=== PATIENT | male | born 1945 | race Caucasian/White ===

== ENCOUNTER 2017-10-27 03:39 | Emergency (ER) | payer BC, MEDICARE ==
[2017-10-27 03:39] VITALS: BMI 31.3
[2017-10-27 05:05] VITALS: BP 131/83; PULSE 82; RESP 16; TEMP 99; O2SAT 96
--- NOTE | 2017-10-27 05:11 | C.PDOC ---
History Of Present Illness 72 y/o male presents to the ED complaining of sudden pain and swelling to his right great toe, onset 2 hours prior to arrival. Denies any trauma or injury. Patient states he has consumed high amounts of red meat and wine during the last week. Otherwise no other complaints. Time Seen by Provider: 10/27/17 04:11 Chief Complaint (Nursing): Lower Extremity Problem/Injury History Per: Patient History/Exam Limitations: no limitations Onset/Duration Of Symptoms: Hrs Current Symptoms Are (Timing): Still Present Past Medical History Reviewed: Historical Data, Nursing Documentation, Vital Signs Vital Signs: Last Vital Signs Temp 99 F 10/27/17 05:04 Pulse 82 10/27/17 05:04 Resp 16 10/27/17 05:04 BP 131/83 10/27/17 05:04 Pulse Ox 96 10/27/17 05:13 - Medical History PMH: Gastrointestinal Ulcer, HTN Surgical History: Denies: Pacemaker - [facility] Procedures COLONOSCOPY (09/27/13) ESOPHAGOGASTRODUODENOSCOPY [EGD] W/CLOSED BIOPSY (12/05/13) INTRODUCTION OF SERUM/TOX/VACCINE INTO MUSCLE, PERC APPROACH (03/27/15) RESECTION OF APPENDIX, PERCUTANEOUS ENDOSCOPIC APPROACH (03/27/15) Family History: States: No Known Family Hx - Social History Hx Alcohol Use: No Hx Substance Use: No Review Of Systems Constitutional: Negative for: Fever, Chills Musculoskeletal: Positive for: Other (right toe pain and swelling) Neurological: Negative for: Weakness, Numbness Physical Exam - Physical Exam Appears: Non-toxic, No Acute Distress Skin: Warm, Dry Head: Atraumatic, Normacephalic Eye(s): bilateral: Normal Inspection, PERRL, EOMI Oral Mucosa: Moist Neck: Normal ROM, Trachea Midline Chest: Symmetrical Respiratory: No Accessory Muscle Use Extremity: Tenderness (and swelling to the right great toe; No warmth or cellulitic changes), Capillary Refill (< 2 sec), Other (ROM causes pain to right toe, otherwise FROM of all toes; Patient is ambulatory with mild pain) Pulses: Left Dorsalis Pedis: Normal, Right Dorsalis Pedis: Normal Neurological/Psych: Oriented x3, Normal Speech, Normal Motor, Normal Sensation ED Course And Treatment O2 Sat by Pulse Oximetry: 96 (RA) Pulse Ox Interpretation: Normal Progress Note: Patient treated with IM Toradol and PO Colchicine. On reevaluation, patient is ambulatory in the ED, reports improvement, and is stable for discharge home. Counseled regarding diagnosis and treatment plan. Advised patient to follow up with PMD for further evaluation. Reassessment Condition: Improved Disposition Counseled Patient/Family Regarding: Diagnosis, Need For Followup - Disposition Referrals: [facility] [Outside] Disposition: HOME/ ROUTINE Disposition Time: 05:07 Condition: STABLE Additional Instructions: Please elevate leg Take medications as directed Return to ER if worse Prescriptions: Colchicine 0.6 mg PO Q6 #10 tablet Naproxen [Naprosyn] 1 tab PO BID PRN #25 tab PRN Reason: Pain Instructions: Gout (DC) Forms: [employer] (Moroccan) - POA Present On Arrival: None - Clinical Impression Clinical Impression: Gout - PA / SURFACER / Resident Statement MD/DO has reviewed & agrees with the documentation as recorded. - Scribe Statement The provider has reviewed the documentation as recorded by the Scribe (Lilian Lee) All medical record entries made by the Scribe were at my direction and personally dictated by me. I have reviewed the chart and agree that the record accurately reflects my personal performance of the history, physical exam, medical decision making, and the department course for this patient. I have also personally directed, reviewed, and agree with the discharge instructions and disposition.
== END 2017-10-27 05:18 | disposition home or self-care (01) ==
LOC: C.ER 03:39
DX: M10.9 Gout, unspecified (principal); I10 Essential (primary) hypertension
CPT/HCPCS: 96372; 99284; J1885

== ENCOUNTER 2018-06-27 13:36 | Emergency (ER) | payer MEDICARE ==
[2018-06-27 13:37] VITALS: BMI 31.3
[2018-06-27 14:06] VITALS: BP 139/86; PULSE 94; RESP 18; TEMP 98.1; O2SAT 98
[2018-06-27] MEDS ORDERED: Lidocaine 1% Inj (20ml) INFIL ONE (14:41)
[2018-06-27] MEDS ORDERED: Tmp-Smz 800 mg-160 mg DS Tab PO STA (14:42)
--- NOTE | 2018-06-27 14:44 | C.PDOC ---
History Of Present Illness 73 y/o male pt presents to the ER c/o abscess for x1 week. Abscess is located in the umbilicus. Pt reports it started as a pimple and was draining but now has become painful and swollen. Pt notes he did not take any medication for pain. Pt denies fever, chills, nausea, vomiting, weakness and numbness. Time Seen by Provider: 06/27/18 14:38 Chief Complaint (Nursing): Abnormal Skin Integrity History Per: Patient History/Exam Limitations: no limitations Onset/Duration Of Symptoms: Days (x7) Current Symptoms Are (Timing): Still Present Past Medical History Reviewed: Historical Data, Nursing Documentation, Vital Signs Vital Signs: Last Vital Signs Temp 98.1 F 06/27/18 14:03 Pulse 94 H 06/27/18 14:03 Resp 18 06/27/18 14:03 BP 139/86 06/27/18 14:03 Pulse Ox 98 06/27/18 14:03 - Medical History PMH: Gastrointestinal Ulcer, HTN - [facility] Procedures COLONOSCOPY (09/27/13) ESOPHAGOGASTRODUODENOSCOPY [EGD] W/CLOSED BIOPSY (12/05/13) INTRODUCTION OF SERUM/TOX/VACCINE INTO MUSCLE, PERC APPROACH (03/27/15) RESECTION OF APPENDIX, PERCUTANEOUS ENDOSCOPIC APPROACH (03/27/15) Family History: States: No Known Family Hx - Social History Hx Alcohol Use: No Hx Substance Use: No Review Of Systems Constitutional: Negative for: Fever, Chills Gastrointestinal: Negative for: Nausea, Vomiting Skin: Positive for: Other (abscess in umbilicus region ) Neurological: Negative for: Weakness, Numbness Physical Exam - Physical Exam Appears: Non-toxic, No Acute Distress Skin: Warm, Dry, Other (2 cm round fluctuant mass in middle of abdomen below umbilicus with overlying and surrounding warmth and erythema. ) Head: Atraumatic, Normacephalic Eye(s): bilateral: Normal Inspection Cardiovascular: Rhythm Regular Respiratory: Normal Breath Sounds Neurological/Psych: Oriented x3, Normal Speech ED Course And Treatment O2 Sat by Pulse Oximetry: 98 (RA) Pulse Ox Interpretation: Normal - Incision & Drainage Of Abscess Anesthesia: Lidocaine 1% Prep Used: Betadine Procedure: Incised W/Scalpel Blade#: (11), Drained Pus, Irrigated Cavity W/Saline, Probed To Break Up Loculations, Packed W/Gauze Medical Decision Making Medical Decision Making: pt with abdominal wall absvess, incised and drained in ed, packed, given antobiotics, to return in 2 days for packing removal and wound check Disposition Counseled Patient/Family Regarding: Diagnosis, Need For Followup, Rx Given - Disposition Disposition: HOME/ ROUTINE Disposition Time: 15:05 Condition: GOOD Additional Instructions: Keep wound covered and dry. Return to Er in 2 days for packing removal and wound check. Take antibiotics until completed. Tylenol for pain if needed. 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 - Scribe Statement The provider has reviewed the documentation as recorded by the Angel Lipscomb Do All medical record entries made by the Angel were at my direction and personally dictated by me. I have reviewed the chart and agree that the record accurately reflects my personal performance of the history, physical exam, medical decision making, and the department course for this patient. I have also personally directed, reviewed, and agree with the discharge instructions and disposition.
[2018-06-27] MEDS ORDERED: Tmp-Smz 800 mg-160 mg DS Tab ONE (14:54)
[2018-06-27] MEDS ORDERED: Lidocaine Hydrochloride 5 ML INJ ONE (14:54)
== END 2018-06-27 15:15 | disposition home or self-care (01) ==
LOC: C.ER 13:36
DX: L03.311 Cellulitis of abdominal wall (principal); L02.211 Cutaneous abscess of abdominal wall

== ENCOUNTER 2018-06-29 11:21 | Emergency (ER) | payer MEDICARE ==
[2018-06-29 11:21] VITALS: BMI 31.3
[2018-06-29 11:32] VITALS: BP 122/81; PULSE 79; RESP 16; TEMP 97.8; O2SAT 98
[2018-06-29] MEDS ORDERED: Bacitracin 500 Units/gm Oint Foilpak UD ONE (12:00)
--- NOTE | 2018-06-29 12:03 | C.PDOC ---
History Of Present Illness 73 year old male presents to the ED for evaluation. Patient is post-op day two and s/p incision and drainage (performed in this ED) of an inferior umbilical lesion. Patient reports good compliance with Bactrim and Keflex. He denies fever, chills. Time Seen by Provider: 06/29/18 11:32 Chief Complaint (Nursing): Abnormal Skin Integrity History Per: Patient History/Exam Limitations: no limitations Onset/Duration Of Symptoms: Days Current Symptoms Are (Timing): Still Present Additional History Per: Patient Past Medical History Reviewed: Historical Data, Nursing Documentation, Vital Signs Vital Signs: Last Vital Signs Temp 97.8 F 06/29/18 11:29 Pulse 79 06/29/18 11:29 Resp 16 06/29/18 11:29 BP 122/81 06/29/18 11:29 Pulse Ox 98 06/29/18 11:29 - Medical History PMH: Gastrointestinal Ulcer, HTN Surgical History: No Surg Hx Denies: Pacemaker - [facility] Procedures COLONOSCOPY (09/27/13) ESOPHAGOGASTRODUODENOSCOPY [EGD] W/CLOSED BIOPSY (12/05/13) INTRODUCTION OF SERUM/TOX/VACCINE INTO MUSCLE, PERC APPROACH (03/27/15) RESECTION OF APPENDIX, PERCUTANEOUS ENDOSCOPIC APPROACH (03/27/15) Family History: States: Unknown Family Hx - Social History Hx Alcohol Use: No Hx Substance Use: No Review Of Systems Constitutional: Negative for: Fever, Chills Skin: Positive for: Other (packing removal s/p I&D) Physical Exam - Physical Exam Appears: Non-toxic, No Acute Distress Skin: Warm, Dry, Other (small packing inferior to the umbilicus with mild surrounding erythema, which is decreased from prior. ) Head: Atraumatic, Normacephalic Eye(s): bilateral: Normal Inspection Oral Mucosa: Moist Neck: Supple Extremity: Normal ROM Neurological/Psych: Normal Speech, Normal Cognition ED Course And Treatment O2 Sat by Pulse Oximetry: 98 (on RA) Pulse Ox Interpretation: Normal Progress Note: Packing removed. There is non-foul smelling serosanguinous discharge. Wound was left unpacked. Medical Decision Making Medical Decision Making: POD #2, wound check healing nicely good compliance with 2 abx packing removed and continue to heal by secondary intention Disposition Doctor Will See Patient In The: Office Counseled Patient/Family Regarding: Studies Performed, Diagnosis - Disposition Referrals: [facility] [Outside] [facility] [Outside] [facility] [Outside] Joseph Castro MD [Medical Doctor] - Disposition: HOME/ ROUTINE Disposition Time: 12:02 Condition: GOOD Additional Instructions: continue daily dressing changes Bacitracin ointment to the wound Continue antibiotics daily as previously prescribed Instructions: Wound Care Forms: [employer] (Nepali) - Clinical Impression Clinical Impression: Wound check, abscess - Scribe Statement The provider has reviewed the documentation as recorded by the Scribe (Dejah Duff) Provider Attestation: All medical record entries made by the Scribe were at my direction and personally dictated by me. I have reviewed the chart and agree that the record accurately reflects my personal performance of the history, physical exam, medical decision making, and the department course for this patient. I have also personally directed, reviewed, and agree with the discharge instructions and disposition.
== END 2018-06-29 12:23 | disposition home or self-care (01) ==
LOC: C.ER 11:21
DX: Z48.00 Encounter for change or removal of nonsurgical wound dressing (principal); L02.91 Cutaneous abscess, unspecified; I10 Essential (primary) hypertension

== ENCOUNTER 2018-08-02 10:32 | Outpatient (CLI) | payer MEDICARE | END 2018-08-02 10:33 | disposition home or self-care (01) | LOC: C.CTH 10:32 ==

== ENCOUNTER 2018-09-17 17:38 | Emergency (ER) | payer MEDICARE ==
[2018-09-17 18:02] VITALS: BMI 28.2
[2018-09-17 18:48] VITALS: BP 136/89; PULSE 75; RESP 18; TEMP 98.2; O2SAT 100
[2018-09-17] MEDS ORDERED: Morphine 4 MG/ML VIAL ONE (18:55)
--- NOTE | 2018-09-17 20:14 | C.PDOC ---
History Of Present Illness 73-year-old male presents to the ED for evaluation of left wrist pain and swelling which began after he sustained a fall prior to arrival. Patient denies head injury, LOC, extremity numbness/weakness. Time Seen by Provider: 09/17/18 18:46 Chief Complaint (Nursing): Finger,Hand,&Wrist History Per: Patient History/Exam Limitations: no limitations Onset/Duration Of Symptoms: Hrs Current Symptoms Are (Timing): Still Present Quality: "Pain" Additional History Per: Patient Past Medical History Reviewed: Historical Data, Nursing Documentation, Vital Signs Vital Signs: Last Vital Signs Temp 98.2 F 09/17/18 18:47 Pulse 75 09/17/18 18:47 Resp 18 09/17/18 18:47 BP 136/89 09/17/18 18:47 Pulse Ox 100 09/17/18 18:47 Primary Care Provider: Non [facility] Provider, - Medical History PMH: Gastrointestinal Ulcer, HTN Surgical History: No Surg Hx Denies: Pacemaker - [facility] Procedures COLONOSCOPY (09/27/13) ESOPHAGOGASTRODUODENOSCOPY [EGD] W/CLOSED BIOPSY (12/05/13) INTRODUCTION OF SERUM/TOX/VACCINE INTO MUSCLE, PERC APPROACH (03/27/15) RESECTION OF APPENDIX, PERCUTANEOUS ENDOSCOPIC APPROACH (03/27/15) Family History: States: Unknown Family Hx - Social History Hx Alcohol Use: No Hx Substance Use: No Review Of Systems Musculoskeletal: Positive for: Other (left wrist pain and swelling ) Neurological: Negative for: Weakness, Numbness Physical Exam - Physical Exam Appears: Non-toxic, No Acute Distress Skin: Normal Color, Warm, Dry Head: Atraumatic, Normacephalic Oral Mucosa: Moist Neck: Supple Chest: Symmetrical, No Deformity Respiratory: No Accessory Muscle Use Extremity: Tenderness (left wrist ), Capillary Refill (less than 2 seconds ), Deformity (left wrist ), Swelling (left wrist ) Pulses: Left Radial: Normal, Right Radial: Normal Neurological/Psych: Oriented x3, Normal Speech, Normal Cognition, Normal Sensation ED Course And Treatment O2 Sat by Pulse Oximetry: 100 (on RA ) Pulse Ox Interpretation: Normal Progress Note: Patient was given Tylenol prior to my evaluation. Patient was still complaining of pain, Morphine IM given. Left wrist XR ordered and reviewed. Case discussed with Dr. Sutton (orthopedist guest relations manager), who instructs to order CT of left upper extremity. Patient is refusing CT and is requesting to leave the ED against medical advice. Sugar tong splint and arm sling applied by CP and checked by me. CD with wrist xray given. Against Medical Advice - AMA Patient Left Against Medical Advice: The patient declines wrist CT and wishes to leave the Emergency Department. This action is against my medical advice. This decision was made with informed refusal. The patient was told that wrist CT is necessary as it was requested b7y Orthopedist. Explanation of the reasons why were discussed. The risks of leaving were explained to the patient and include, but are not limited to, worsening of known or currently unknown conditions, permanent disability and from undiagnosed or untreated conditions. The patient has the capacity to make this informed decision and understands my explanation of the current medical problem and risks of leaving. The patient voluntarily accepts these risks and signed an AMA form documenting our conversation. The patient was given the opportunity to ask questions and reconsider. The patient was encouraged to return to the Emergency Department at any time for further care. Disposition - Disposition Disposition: AGAINST MEDICAL ADVICE Disposition Time: 20:12 Condition: FAIR Additional Instructions: Follow up with Orthopedist within 1-2 days. Return to ED if feel worse. Prescriptions: oxyCODONE/Acetaminophen [Percocet 5/325 mg Tab] 1 tab PO QID PRN #20 tab PRN Reason: Pain Instructions: Wrist Fracture (DC) Forms: [employer] (Azerbaijani) - Clinical Impression Clinical Impression: Wrist fracture, left - PA / COUNSELING SERVICES MANAGER / Resident Statement MD/DO has reviewed & agrees with the documentation as recorded. - Scribe Statement The provider has reviewed the documentation as recorded by the Scribe (Dejah Duff) All medical record entries made by the Scribe were at my direction and personally dictated by me. I have reviewed the chart and agree that the record accurately reflects my personal performance of the history, physical exam, medical decision making, and the department course for this patient. I have also personally directed, reviewed, and agree with the discharge instructions and disposition.
--- NOTE | 2018-09-18 15:34 | RAD ---
Date of service: 09/17/2018 PROCEDURE: Left Wrist Radiographs. HISTORY: fall/wrist injury COMPARISON: None. TECHNIQUE: 4 views obtained. FINDINGS: BONES: There is a impacted, comminuted, intra-articular displaced fracture of the distal left radius with volar angulation of the displaced fracture fragments. Moderate-significant surrounding soft tissue swelling JOINTS: No significant degenerative osteoarthritis SOFT TISSUES: As above. OTHER FINDINGS: None. IMPRESSION: Impacted, comminuted, intra-articular displaced fracture of the distal left radius with volar angulation of the displaced fracture fragments..
== END 2018-09-17 20:46 | disposition left against medical advice (07) ==
LOC: C.ER 17:38
DX: S52.572A Other intraarticular fracture of lower end of left radius, initial encounter for closed fracture (principal); W19.XXXA Unspecified fall, initial encounter
CPT/HCPCS: 29125; 73110; 96372; 99284; J2270